=== PATIENT | male | born 1965 | race African-American/Black ===

== ENCOUNTER 2022-02-11 13:03 | Emergency (ER) | payer SELFPAY ==
[~2022-02-11] VITALS: Ht 177.8 cm; Wt 100.0 kg
[2022-02-11 21:12] VITALS: BP 160/100
== END 2022-02-11 21:17 | disposition home or self-care (01) ==
LOC: ER 13:03
DX: H35.30 Unspecified macular degeneration (principal)
CPT/HCPCS: 99284